=== PATIENT | female | born 1960 | race Caucasian/White ===

== ENCOUNTER → 2018-07-25 | Outpatient (CLI) | payer OTHER ==
[~2018-07-25] MED LIST: AMLODIPINE PO; CARV12.52 PO; [UNRECOGNIZED DRUG - OTHER] PO
[2018-07-25 14:57] LABS: MICROSCOPIC NOT IND
[2018-07-25 15:05] LABS: CULTURE INDICATED? NO
[2018-07-25 15:23] LABS: ALANINE AMINOTRANSFERASE 37 U/L (12-78); ALBUMIN 3.6 g/dL (3.4-5.0); ANION GAP 4 mmol/L (5-15); CALCIUM 8.9 mg/dL (8.5-10.1); CHLORIDE 110 mmol/L (98-107); CREATININE 0.78 mg/dL (0.55-1.02)
[2018-07-25 15:25] LABS: ALKALINE PHOSPHATASE 57 U/L (45-117); BILIRUBIN,TOTAL 0.6 mg/dL (0.2-1.0); TOTAL PROTEIN 6.9 g/dL (6.4-8.2)
[2018-07-25 15:32] LABS: BASOPHILS # (AUTO) 0.02 x10^3/uL (0-0.1); BASOPHILS % (AUTO) 0 % (0-1); EOSINOPHILS # (AUTO) 0.19 x10^3/uL (0-0.4); EOSINOPHILS % (AUTO) 3 % (1-7); LYMPHOCYTES # (AUTO) 2.07 x10^3/uL (1-3.4); LYMPHOCYTES % (AUTO) 31 % (22-44); MD NO; MEAN CORPUSCULAR HGB CONC 34.4 g/dL (32.4-35.8); MEAN CORPUSCULAR VOLUME 87.2 fL (80-100); MEAN PLATELET VOLUME 7.6 fL (7.4-10.4); MONOCYTES # (AUTO) 0.53 x10^3/uL (0.2-0.8); MONOCYTES % (AUTO) 8 % (2-9); NEUTROPHILS # (AUTO) 3.91 x10^3/uL (1.8-6.8); NEUTROPHILS % (AUTO) 58 % (42-75); PLATELET COUNT 253 x10^3/uL (130-400); RED BLOOD COUNT 4.66 x10^6/uL (3.82-5.3); RED CELL DISTRIBUTION WIDTH 13.1 % (9.6-15.2)
== END | disposition home or self-care (01) ==
LOC: STAR 14:02
PROVIDERS: ATTEND Obstetrics & Gynecology
DX: Z01.818 Encounter for other preprocedural examination (principal); N83.202 Unspecified ovarian cyst, left side; I25.2 Old myocardial infarction; I10 Essential (primary) hypertension; Z87.891 Personal history of nicotine dependence
CPT/HCPCS: 36415; 71046; 80053; 81003; 85025; 93005

== ENCOUNTER 2018-08-08 13:20 | Day surgery (SDC) | payer OTHER ==
[~2018-08-08] VITALS: Ht 154.9 cm; Wt 60.0 kg
[2018-08-08] MEDS ORDERED: LACTATED RINGERS 1,000 ML IV SCH ×2 (13:32→14:21)
[2018-08-08] MEDS ORDERED: MIDAZOLAM 1 MG/ML, 2ML ONE (14:09)
[2018-08-08] MEDS ORDERED: FENTANYL PF 100 MCG/2ML ONE (14:09)
[2018-08-08 14:17] VITALS: BP 146/87
[2018-08-08] MEDS ORDERED: GABAPENTIN 300 MG CAPSULE PO ONE (14:30)
[2018-08-08] MEDS ORDERED: HYDROmorphone 2 MG/ML, 1ML IVPush PRN (14:30)
[2018-08-08] MEDS ORDERED: LABETALOL 5MG/ML, 20ML IV PRN (14:30)
[2018-08-08] MEDS ORDERED: ONDANSETRON ODT 8 MG PO ONE (14:30)
[2018-08-08] MEDS ORDERED: OXYcodone 5 MG/5 ML ORAL.SOL UDC PO PRN (14:30)
[2018-08-08] MEDS ORDERED: hydrALAzine 20 MG/ML, 1ML IV PRN (14:30)
[2018-08-08] MEDS ORDERED: FENTANYL PF 100 MCG/2ML IV PRN (14:30)
[2018-08-08] MEDS ORDERED: ACETAMINOPHEN 500 MG TABLET PO ONE (14:30)
[2018-08-08] MEDS ORDERED: METOCLOPRAMIDE 5 MG/ML, 2ML IV PRN (14:30)
[2018-08-08] MEDS ORDERED: LORazepam 2 MG/ML, 1ML IVPush PRN (14:30)
[2018-08-08] MEDS ORDERED: EPINEPHRINE 1 MG/ML, 1ML ONE (14:50)
[2018-08-08] MEDS ORDERED: BUPIVACAINE/PF 0.25% ONE (14:50)
[2018-08-08] MEDS ORDERED: GLYCOPYRROLATE 0.2MG/1ML, 5ML ONE (15:33)
[2018-08-08] MEDS ORDERED: PROPOFOL 10 MG/ML, 20ML ONE (15:33)
[2018-08-08] MEDS ORDERED: ROCURONIUM 10 MG/ML,10ML ONE (15:33)
[2018-08-08] MEDS ORDERED: NEOSTIGMINE 1 MG/ML, 10ML ONE (15:33)
[2018-08-08] MEDS ORDERED: BUPIVACAINE/PF-EPI 0.25% 1:200K INFIL ONE (15:46)
[2018-08-08] MEDS ORDERED: OXYcodone 5 MG/5 ML ORAL.SOL UDC ONE (16:37)
[2018-08-08] MEDS ORDERED: MEPERIDINE/PF 25MG/ML,1ML ONE (16:37)
[2018-08-08] MEDS ORDERED: KETOROLAC 30 MG/1 ML ONE (16:52)
[2018-08-08] MEDS ORDERED: KETOROLAC 30 MG/1 ML IVPush PRN (17:00)
[2018-08-08] MEDS ORDERED: MEPERIDINE/PF 25MG/0.5ML IVPush PRN (17:30)
== END 2018-08-08 20:30 | disposition home or self-care (01) ==
LOC: OR 13:20 → 4NOR 17:50 → OR 20:30
PROVIDERS: ATTEND Obstetrics & Gynecology
DX: N83.202 Unspecified ovarian cyst, left side (principal); N95.0 Postmenopausal bleeding; I10 Essential (primary) hypertension; G47.33 Obstructive sleep apnea (adult) (pediatric); Z98.890 Other specified postprocedural states
CPT/HCPCS: 36415; 58661; 86850; 86900; 88305; J0171; J1885; J2175; J2250; J2704; J2710; J3010; J3490; J7120; Q0162; G0378